=== PATIENT | female | born 1985 | race Caucasian/White ===

== ENCOUNTER 2016-12-12 05:55 | Emergency (ER) | payer OTHER ==
[~2016-12-12] VITALS: Ht 152.4 cm; Wt 60.0 kg
[2016-12-12 06:09] VITALS: Ht 152.4 cm; Wt 60.0 kg
--- NOTE | 2016-12-12 06:31 | ERD ---
ER Documentation Chief Complaint Date/Time DATE: 12/12/16 TIME: 06:28 Chief Complaint accidental overdose- found obtunded with tournoquet around arm HPI Patient is a 31-year-old female with history of heroin abuse who was brought in by EMS after being found lethargic in the field and requiring Narcan. Patient responded to Narcan and is currently awake. She reports going to rehab in September, and since then intermittently smoking heroin. She injected heroin 1 week ago, and again last night and this morning. In addition she reports taking approximately 4 mg of Xanax in small doses over the course of 24 hours. She denies other ingestants, denies suicidal intent. Patient currently reports feeling slightly confused, but has no physical complaints such as shortness of breath. ROS All systems reviewed and are negative except as per history of present illness. Allergies Allergies: Coded Allergies: No Known Allergy (Unverified , 12/12/16) PMhx/Soc Past medical history: Hypothyroidism Past surgical history: None Social history: History of heroin abuse Medical and Surgical Hx: pt denies Surgical Hx Hx Alcohol Use: Yes Hx Substance Use: Yes (heroin) Hx Tobacco Use: No Smoking Status: Never smoker FmHx Noncontributory Family History: No coronary disease, No diabetes Physical Exam Vitals Vital Signs Date Time Temp Pulse Resp B/P Pulse Ox O2 Delivery O2 Flow Rate FiO2 12/12/16 06:09 96 20 121/93 92 Physical Exam Const: Alert, disoriented to time and place. No acute distress, mild anxiety Head: Atraumatic Eyes: Normal Conjunctiva, midrange pupils ENT: Normal External Ears, Nose and Mouth. Neck: Full range of motion. No meningismus. Resp: Clear to auscultation bilaterally Cardio: Regular rate and rhythm, no murmurs Abd: Soft, non tender, non distended. Skin: No petechiae or rashes, no abscesses Back: No midline or flank tenderness Ext: No cyanosis, or edema Neur: Awake and alert, cranial nerves II through XII intact bilaterally, intact strength and sensation in 4 extremities Psych: Normal Mood, slightly anxious affect Procedures/MDM MDM: Patient is a 31-year-old female with accidental overdose on heroin in the setting of also using Xanax. Patient received Narcan in the field. Patient observed in ER for approximately 2 hours and is maintaining alertness and good respiratory status. No current complaints, no suggestion of suicidal ideation. Patient counseled on risks of overdose in the setting of concomitant use of benzodiazepines, as well as during periods of relapse. Provided resources for outpatient addiction treatment. Departure Diagnosis: Primary Impression: Accidental overdose Encounter type: initial encounter Qualified Code: T50.901A - Accidental overdose, initial encounter Condition: DAMIÁN Souza Dec 12, 2016 06:31
[2016-12-12 07:53] VITALS: BP 125/85; PULSE 76; RESP 16; TEMP 98.2
== END 2016-12-12 08:15 | disposition home or self-care (01) ==
LOC: E/R 05:55
DX: T40.1X1A Poisoning by heroin, accidental (unintentional), initial encounter (principal); T42.4X1A Poisoning by benzodiazepines, accidental (unintentional), initial encounter; E03.9 Hypothyroidism, unspecified
CPT/HCPCS: Z7502; Z7610; 99282